=== PATIENT | male | born 1975 | race Caucasian/White ===

== ENCOUNTER 2016-07-03 04:10 | Emergency (ER) | payer BC ==
[2016-07-03] MEDS ORDERED: Ondansetron INJ* 2 MG/ML VIAL IV ONE ×2 (04:24→05:23)
[2016-07-03] MEDS ORDERED: NS 0.9% 1000 ML* 1,000 ML IV ONE ×4 (04:24→10:06)
[2016-07-03] MEDS ORDERED: Ketorolac INJ* 30 MG/ML 1 ML VIAL IV ONE (04:24)
[2016-07-03] MEDS ORDERED: Ondansetron INJ* 2 MG/ML VIAL ONE (04:27)
[2016-07-03] MEDS ORDERED: Ketorolac INJ* 30 MG/ML 1 ML VIAL ONE (04:27)
--- NOTE | 2016-07-03 04:38 | ED ---
Karen Mcclendon Rebecca, scribed for Jose Workman MD on 07/03/16 at 0423 . Abdominal Pain/Male - HPI Summary HPI Summary: Pt is a 41 y/o M who presents to ED c/o abd pain. Pain began suddenly this morning at 0130 while sleeping and has been constant since onset. Pain is in the RLQ with radiation to the right pelvic and is characterized as sharp and currently ranked 10/10. Sx aggravated and alleviated by nothing. Additionally c/ o nausea. Denies fever. PMHx kidney stones. Prior similar episodes with previous kidney stones, with the last one being a few years ago. No known medication allergies. - History of Current Complaint Chief Complaint: EDUrogenitalProblems Stated Complaint: UPPER ABD PAIN Hx Obtained From: Patient Onset/Duration: Sudden Onset, Lasting Hours - 3 hours, Still Present Timing: Constant Severity Initially: Moderate Severity Currently: Severe Pain Intensity: 10 Pain Scale Used: 0-10 Numeric Location: Discrete At: RLQ Radiates: Yes Radiates to: Inguinal - Right Character: Sharp Aggravating Factor(s): Nothing Alleviating Factor(s): Nothing Associated Signs And Symptoms: Positive: Nausea. Negative: Fever - Allergies/Home Medications Allergies/Adverse Reactions: Allergies Allergy/AdvReac Type Severity Reaction Status Date / Time No Known Allergies Allergy Verified 04/14/12 17:53 PMH/Surg Hx/FS Hx/Imm Hx Endocrine/Hematology History: Denies: Hx Diabetes Cardiovascular History: Denies: Hx Hypertension, Hx Pacemaker/ICD History: Reports: Hx Kidney Stones Sensory History: Denies: Hx Hearing Aid Psychiatric History: Denies: Hx Panic Disorder Infectious Disease History: No Infectious Disease History: Denies: Traveled Outside the [place] in Last 30 Days - Family History Known Family History: Negative: Hypertension - Social History Alcohol Use: None Substance Use Type: Reports: None Smoking Status (MU): Former Smoker Review of Systems Negative: Fever Positive: Abdominal Pain - RLQ, Nausea All Other Systems Reviewed And Are Negative: Yes Physical Exam Triage Information Reviewed: Yes Vital Signs On Initial Exam: Initial Vitals Temp Pulse Resp BP Pulse Ox 95.6 F 87 20 166/71 99 07/03/16 04:11 07/03/16 04:11 07/03/16 04:11 07/03/16 04:11 01/31/17 04:11 Vital Signs Reviewed: Yes Appearance: Positive: Well-Nourished, Pain Distress - moderate discomfort Skin: Positive: Warm Eyes: Positive: JACKELINE ENT: Positive: Hearing grossly normal Neck: Positive: Supple Respiratory/Lung Sounds: Positive: Breath Sounds Present Cardiovascular: Positive: RRR Abdomen Description: Positive: Nontender, No Organomegaly, Soft Bowel Sounds: Positive: Present Musculoskeletal: Positive: Strength/ROM Intact Neurological: Positive: Sensory/Motor Intact, Alert, Oriented to Person Place, Time Psychiatric: Positive: Affect/Mood Appropriate Diagnostics - Vital Signs Vital Signs Temp Pulse Resp BP Pulse Ox 07/03/16 04:11 95.6 F 87 20 166/71 99 - Laboratory Result Diagrams: 07/03/16 04:20 07/03/16 04:20 Lab Statement: Any lab studies that have been ordered have been reviewed, and results considered in the medical decision making process. - CT CT Abd/Pel CT Interpretation: Positive (See Comments) - Mild left hydronephrosis and perinephric inflammation secondary to a 4 mm mid left ureteral stone CT Interpretation Completed By: Radiologist Re-Evaluation - Re-Evaluation First Eval Re-Evaluation Time: 05:23 Change: Improved Comment: Pain has improved, but is starting to return. Second Eval Re-Evaluation Time: 07:33 - awaiting u/a Change: Improved Abdominal Pain Fem Course/Dx - Course Assessment/Plan: Pt is a 41 y/o M who presents to ED with a CC of RLQ pain that radiates into the R inguinal region for the last 3 hours. Additionally c/o nausea. Denies fever. CT Abd/Pel reveals mild left hydronephrosis and perinephric inflammation secondary to a 4 mm mid left ureteral stone. Pt will be d/c to home with a dx of renal colic. - Diagnoses Provider Diagnoses: Renal colic Discharge - Discharge Plan Condition: Stable Disposition: HOME Prescriptions: Tamsulosin CAP* [Flomax CAP*] 0.4 mg PO DAILY #5 cap oxyCODONE/Acetamin 5/325 MG* [Percocet 5/325 TAB*] 2 tab PO Q6H PRN #24 tab MDD 8 PRN Reason: Pain Patient Education Materials: Renal Colic (ED) Referrals: Jason Dhaliwal MD [Medical Doctor] - 1 Day (Follow up with Dr. Dhaliwal, urologist, within the next few days. ) Additional Instructions: CALL TODAY FOR FOLLOW UP WITH UROLOGY. RETURN TO THE EMERGENCY DEPARTMENT FOR ANY WORSENING OF YOUR CONDITION; PAIN, FEVER, YOU FEEL ILL OR QUESTIONS OR CONCERNS. The documentation as recorded by the Karen torrez Rebecca accurately reflects the service I personally performed and the decisions made by me, Jose Workman MD.
[2016-07-03 04:42] LABS: Hematocrit 47 % (42-52); Hemoglobin 15.8 g/dl (14.0-18.0); Mean Corpuscular HGB Conc 34 g/dl (31-36); Mean Corpuscular Hemoglobin 30 pg (27-31); Mean Corpuscular Volume 87 fL (80-94); Mean Platelet Volume 8 um3 (7.4-10.4); Red Blood Count 5.34 10^6/ul (4.0-5.4); Red Cell Distribution Width 13 % (10.5-15)
[2016-07-03 04:54] LABS: Albumin 4.4 g/dL (3.2-5.2); BUN/Creatinine Ratio 16.5 (8-20); C Reactive Protein 1.64 mg/L (< 5.00); Calcium 9.5 mg/dL (8.6-10.3); EGFR African American 79.6 (>60); EGFR Non-African American 61.9 (>60); Magnesium 1.9 mg/dL (1.9-2.7); Potassium 3.5 mmol/L (3.5-5.0); Total Bilirubin 0.3 mg/dL (0.2-1.0); Total Protein 7.4 g/dL (6.4-8.9)
[2016-07-03] MEDS ORDERED: HYDROmorphone INJ* 1 MG/ML CARPUJECT SYRINGE IV SLOW PU ONE ×2 (04:59→05:23)
[2016-07-03] MEDS ORDERED: HYDROmorphone INJ* 1 MG/ML CARPUJECT SYRINGE ONE (05:01)
--- NOTE | 2016-07-03 07:56 | RAD ---
INDICATION: Left flank pain COMPARISON: CT December 30, 2002 TECHNIQUE: Noncontrast axial source images were acquired from the level hemidiaphragms to the symphysis pubis as part of CT imaging for renal stone. Lung bases: The lung bases are clear. Liver: There is mild hepatomegaly. Noncontrast imaging shows no evidence of a hepatic mass or ductal dilatation. Gallbladder: There are no calcified gallstones. There is no evidence of wall thickening or pericholecystic fluid.. Spleen: The spleen is normal in size. The noncontrast CT appearance is normal. Pancreas: Noncontrast imaging shows no pancreatic mass or ductal dilitation. Adrenal glands: No masses are identified. Kidneys/Bladder: There is a left-sided, 5 mm, mid ureteral calculus with mild obstructive findings. There is a nonobstructive mid pole 5 mm left renal calculus. There are no other calcifications of urinary significance Adenopathy: There is no evidence of intraperitoneal or retroperitoneal adenopathy. Evaluation is limited without oral contrast. Fluid collections: There are no free or localized fluid collections. Vessels: The aorta and iliac vessels are normal in caliber. There are no significant atherosclerotic changes. The IVC appears normal Pelvic organs: The prostate and seminal vesicles appear normal GI tract: Evaluation of the bowel is limited without oral contrast. The stomach, small bowel, and lower GI tract appear grossly normal. There are no obstructive findings. Soft tissues: No soft tissue abnormalities of the extraperitoneal abdomen or pelvis are identified. Osseous structures: There are no acute osseous findings. IMPRESSION: 5 MM mid left ureteral calculus with mild obstructive findings. Additional nonobstructive 5 mm left renal calculus.
[2016-07-03] MEDS ORDERED: HYDROmorphone INJ* 1 MG/ML CARPUJECT SYRINGE IV ONE (10:06)
[2016-07-03 10:51] LABS: Urine Bacteria Absent (Absent); Urine Bilirubin Negative (Negative); Urine Glucose Negative (Negative); Urine Nitrite Negative (Negative)
[2016-07-03 11:15] VITALS: BP 134/72
[2016-07-03] MEDS ORDERED: Tamsulosin CAP* 0.4 MG PO ONE (11:44)
[2016-07-03] MEDS ORDERED: oxyCODONE/Acetamin 5/325 MG* TAB PO ONE (11:50)
--- NOTE | 2016-07-03 13:34 | ED ---
Jamison Mcclendon Anna, scribed for Jake Flores MD on 07/03/16 at 1153 . Progress - Progress Note Progress Note: dx kidney stone DISCHARGE HOME STABLE. RX PERCOCET AND FLOMAX. F/U UROLOGY Re-Evaluation - Re-Evaluation First Eval Re-Evaluation Time: 11:50 Change: Improved Comment: Pain is improved with IV fluids but returns immediatedly after fluids are gone. Pain has remained in the same location. Discussed results and plan of care with patient. Patient and family are agreeable to plan. Course/Dx - Diagnoses Provider Diagnoses: Renal colic The documentation as recorded by the Jamison torrez Anna accurately reflects the service I personally performed and the decisions made by , Jake Flores MD.
== END 2016-07-03 15:41 | disposition home or self-care (01) ==
LOC: ED 04:10
DX: N23 Unspecified renal colic (principal); R10.31 Right lower quadrant pain; R11.0 Nausea; Z87.891 Personal history of nicotine dependence
CPT/HCPCS: 36415; 74176; 80053; 81003; 81015; 83690; 83735; 85025; 86140; 96374; 96375; 99282; A9270-GY; J1170; J1885; J2405

== ENCOUNTER 2017-03-28 19:12 | Emergency (ER) | payer BC ==
[2017-03-28 19:20] VITALS: BP 136/74
--- NOTE | 2017-03-28 19:39 | UC ---
Skin Complaint HPI - HPI Summary HPI Summary: Patient presents with complaints of right sided facial swelling that he woke up with this morning. He states it has gotten worse through the course of today. He denies any dental injury, trauma or toothache. He states this afternoon he had chills. He states his right cheek is red, warm to touch and slightly painful. He states he can eat, drink, speak and swallow without any difficulty. - History of Current Complaint Chief Complaint: UCGeneralIllness Time Seen by Provider: 03/28/17 19:22 Stated Complaint: FACE SWELLING Hx Obtained From: Patient Onset/Duration: Gradual Onset, Lasting Hours Skin Exposure Onset/Duration: Hours Ago Timing: Constant Onset Severity: Mild Current Severity: Moderate Location: Discrete, Face Character: Swelling, Redness, Raised, Painful Aggravating Factor(s): Nothing Alleviating Factor(s): Nothing Associated Signs & Symptoms: Positive: Chills - Allergy/Home Medications Allergies/Adverse Reactions: Allergies Allergy/AdvReac Type Severity Reaction Status Date / Time No Known Allergies Allergy Verified 04/14/12 17:53 Review of Systems Constitutional: Chills Skin: Other - right facial swelling of cheek to manible. without submadibular lymphadenorathy. no tenderness on floor of mouth. Eyes: Negative ENT: Negative Respiratory: Negative Cardiovascular: Negative Gastrointestinal: Negative Genitourinary: Negative Motor: Negative Neurovascular: Negative Musculoskeletal: Negative Neurological: Negative Psychological: Negative All Other Systems Reviewed And Are Negative: Yes PMH/Surg Hx/FS Hx/Imm Hx Previously Healthy: Yes - Surgical History Surgical History: None - Family History Known Family History: Negative: Hypertension - Social History Occupation: Employed Full-time Lives: With Family Alcohol Use: None Substance Use Type: None Smoking Status (MU): Former Smoker Physical Exam Triage Information Reviewed: Yes Appearance: Well-Appearing Vital Signs: Initial Vital Signs Temp 99.5 F 03/28/17 19:15 Pulse 85 03/28/17 19:15 Resp 18 03/28/17 19:15 BP 136/74 03/28/17 19:15 Pulse Ox 98 03/28/17 19:15 Vital Signs Reviewed: Yes Eye Exam: Normal ENT Exam: Normal ENT: Positive: Other: - dentician in poor repair over right upper second and third molars. no tenderness on palpation over dentician. gums pink without induration, flucuanance noted on palpation of outter gum tissue performed by Dr. Orona. Dental Exam: Normal Neck exam: Normal Neck: Positive: 1 Respiratory Exam: Normal Cardiovascular Exam: Normal Abdominal Exam: Normal Musculoskeletal Exam: Normal Neurological Exam: Normal Psychological Exam: Normal Skin Exam: Normal Course/Dx - Course Course Of Treatment: Patient presents with right sided facial swelling., On examination performed by Dr. Orona he did have flucuance of the outter gum tissue consistent with underlying dental abscess and facial cellultitis. The patient was referred to the ER. He declined ambulance transfer and preferred to go in private vehicle. His was in attendance and can accompany him to the ER. ER contacted spoke to Adrienne FREIRE, informed of the transfer. Discharge in stabe condition. Patient was also seen and evaluated by Dr Schroeder who was in agreement with plan of care and disposition. - Differential Diagnoses - Skin Complaint Differential Diagnoses: Cellulitis, Other - dental abscess - Diagnoses Provider Diagnoses: cellulitis. dental abscess Discharge - Discharge Plan Condition: Stable Disposition: OTHER Discharge Disposition Comment: Go directly to the emergency department. Patient Education Materials: Dental Abscess (ED), Cellulitis (ED) Referrals: No Primary Care Phys,NOPCP [Primary Care Provider] - Additional Instructions: Go directly to the ER.
== END 2017-03-28 19:30 ==
LOC: UCEAST 19:12
DX: L03.211 Cellulitis of face (principal); K04.7 Periapical abscess without sinus; Z87.891 Personal history of nicotine dependence
CPT/HCPCS: 99211; G0463

== ENCOUNTER 2017-03-28 19:54 | Emergency (ER) | payer BC ==
[2017-03-28 21:50] LABS: Hematocrit 45 % (42-52); Hemoglobin 15.5 g/dl (14.0-18.0); Mean Corpuscular HGB Conc 34 g/dl (31-36); Mean Corpuscular Hemoglobin 31 pg (27-31); Mean Corpuscular Volume 90 fL (80-94); Mean Platelet Volume 8 um3 (7.4-10.4); Red Blood Count 5.05 10^6/ul (4.0-5.4); Red Cell Distribution Width 13 % (10.5-15); White Blood Count 9.6 10^3/ul (3.5-10.8)
[2017-03-28 22:05] LABS: Albumin 4.6 g/dL (3.2-5.2); BUN/Creatinine Ratio 19.2 (8-20); EGFR African American 105.6 (>60); EGFR Non-African American 82.1 (>60); Globulin 2.7 g/dL (2-4); Total Bilirubin 0.4 mg/dL (0.2-1.0); Total Protein 7.3 g/dL (6.4-8.9)
[2017-03-28 22:06] LABS: Potassium 3.8 mmol/L (3.5-5.0)
[2017-03-28] MEDS ORDERED: Iohexol 300* (CONTRAST) 10 ML SDV IV ONE ×2 (22:20→23:22)
[2017-03-28] MEDS ORDERED: Vancomycin 1500 MG IV - x ONCE IVPB ONE ×2 (23:30)
[2017-03-28] MEDS ORDERED: Vancomycin(*) 1,000 MG VIAL IVPB SCH (23:45)
[2017-03-28] MEDS ORDERED: Clindamycin 600 MG IVPREMIX(* 600 MG/50 ML SDV IV ONE (23:48)
--- NOTE | 2017-03-29 00:43 | ED ---
Karen Mcclendon Rebecca, scribed for Tay Cruz MD on 03/28/17 at 2328 . Skin Complaint - HPI Summary HPI Summary: Pt is a 42 y/o M referred from [facility] who presents to ED c/o R-sided facial swelling. Sx began this morning at approximately 0130 and has been gradually worsening throughout the day. Sx began closer to the eye and have spread down. Has not taken any medication for pain. Associated pain is currently mild, ranked 2/10. Sx aggravated and alleviated by nothing, unchanged by palpation. Additionally c/o chills. Denies SOB, abnormal taste in mouth, dental pain. 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 At [facility], symptoms were suspected to be facial cellulitis. - History of Current Complaint Chief Complaint: EDRashSkinAbscess Stated Complaint: DENTAL PAIN Hx Obtained From: Patient Onset/Duration: Started Days Ago - This morning at 0130, Still Present Current Severity: Moderate Pain Intensity: 4 Pain Scale Used: 0-10 Numeric Skin Location: Face - Allergy/Home Medications Allergies/Adverse Reactions: Allergies Allergy/AdvReac Type Severity Reaction Status Date / Time No Known Allergies Allergy Verified 03/28/17 21:29 PMH/Surg Hx/FS Hx/Imm Hx Endocrine/Hematology History: Denies: Hx Diabetes Cardiovascular History: Denies: Hx Hypertension, Hx Pacemaker/ICD History: Reports: Hx Kidney Stones Denies: Hx Renal Disease Sensory History: Denies: Hx Hearing Aid Psychiatric History: Denies: Hx Panic Disorder Infectious Disease History: No Infectious Disease History: Denies: Traveled Outside the [place] in Last 30 Days - Family History Known Family History: Negative: Hypertension - Social History Alcohol Use: None Substance Use Type: Reports: None Smoking Status (MU): Former Smoker Review of Systems Positive: Chills Positive: Other - NEGATIVE: Abnormal taste in mouth. Negative: Dental Pain Negative: Shortness Of Breath Positive: Other - R-sided facial swelling All Other Systems Reviewed And Are Negative: Yes Physical Exam - Summary Physical Exam Summary: Appearance: Well-appearing, Well-nourished Skin: Warm, Swelling of the right cheek from his R eye down to his R mandible, mild tenderness to palpation with warmth, erythema and edema Eyes: Normal, EOMI without pain ENT: Normal, no evidence of dental caries or dental abscess Neck: Supple, nontender, no brawny edema, no sublingual edema Respiratory: Clear to auscultation Cardiovascular: Normal Abdomen: Soft, nontender Bowel: Present Musculoskeletal: Normal, Strength/ROM Intact Neurological: Normal, A&Ox3 Psychiatric: Normal Triage Information Reviewed: Yes Vital Signs On Initial Exam: Initial Vitals Temp Pulse Resp BP Pulse Ox 98.8 F 91 14 151/77 99 03/28/17 19:55 03/28/17 19:55 03/28/17 19:55 03/28/17 19:55 03/28/17 19:55 Vital Signs Reviewed: Yes - [place] Coma Scale Coma Scale Total: 15 Diagnostics - Vital Signs Vital Signs Temp Pulse Resp BP Pulse Ox 03/28/17 21:47 98.7 F 86 14 146/84 100 03/28/17 19:55 98.8 F 91 14 151/77 99 - Laboratory Lab Results: Lab Results 03/28/17 03/28/17 03/28/17 Range/Units 21:29 21:29 21:29 WBC 9.6 (3.5-10.8) 10^3/ul RBC 5.05 (4.0-5.4) 10^6/ul Hgb 15.5 (14.0-18.0) g/dl Hct 45 (42-52) % MCV 90 (80-94) fL MCH 31 (27-31) pg MCHC 34 (31-36) g/dl RDW 13 (10.5-15) % Plt Count 163 (150-450) 10^3/ul MPV 8 (7.4-10.4) um3 Neut % (Auto) 68.4 (38-83) % Lymph % (Auto) 19.8 L (25-47) % [place] % (Auto) 10.0 H (1-9) % Eos % (Auto) 1.3 (0-6) % Baso % (Auto) 0.5 (0-2) % Absolute Neuts (auto) 6.6 (1.5-7.7) 10^3/ul Absolute Lymphs (auto) 1.9 (1.0-4.8) 10^3/ul Absolute Monos (auto) 1.0 H (0-0.8) 10^3/ul Absolute Eos (auto) 0.1 (0-0.6) 10^3/ul Absolute Basos (auto) 0 (0-0.2) 10^3/ul Absolute Nucleated RBC 0 10^3/ul Nucleated RBC % 0 Sodium 138 (133-145) mmol/L Potassium 3.8 (3.5-5.0) mmol/L Chloride 102 (101-111) mmol/L Carbon Dioxide 29 (22-32) mmol/L Anion Gap 7 (2-11) mmol/L BUN 19 (6-24) mg/dL Creatinine 0.99 (0.67-1.17) mg/dL Est GFR ( Amer) 105.6 (>60) Est GFR (Non-Af Amer) 82.1 (>60) BUN/Creatinine Ratio 19.2 (8-20) Glucose 97 (70-100) mg/dL Lactic Acid 1.2 (0.5-2.0) mmol/L Calcium 10.0 (8.6-10.3) mg/dL Total Bilirubin 0.40 (0.2-1.0) mg/dL AST 18 (13-39) U/L ALT 30 (7-52) U/L Alkaline Phosphatase 77 (34-104) U/L Total Protein 7.3 (6.4-8.9) g/dL Albumin 4.6 (3.2-5.2) g/dL Globulin 2.7 (2-4) g/dL Albumin/Globulin Ratio 1.7 (1-3) Result Diagrams: 03/28/17 21:29 03/28/17 21:29 Lab Statement: Any lab studies that have been ordered have been reviewed, and results considered in the medical decision making process. - CT CT Maxillofacial CT Interpretation: Positive (See Comments) - Right sided preceptal and facial cellulitis without abscess, post septal extension or osteomyelitis. ED physician reviewed radiology report and agrees. CT Interpretation Completed By: Radiologist Course/Dx - Course Course Of Treatment: given 1 dose of iv abx, dischargd with po script, instructed to fu with ent physician and pmd adn return for any worsening or concerning sxs . no evidence of filomena's angina, agrees to and understands dc instructois - Diagnoses Provider Diagnoses: Facial cellulitis, Preseptal cellulitis of right eye Discharge - Discharge Plan Condition: Improved Disposition: HOME Prescriptions: Clindamycin Cap(NF) [Clindamycin Cap 300 mg Cap(NF)] 300 mg PO TID #30 cap Patient Education Materials: Periorbital Cellulitis in Adults (ED) Referrals: Stoney Hooper MD [Primary Care Provider] - Oren Jose MD [Medical Doctor] - Additional Instructions: PLEASE MAKE AN APPOINTMENT FIRST THING IN THE MORNING TO BE SEEN BY YOUR PRIMARY CARE DOCTOR AND ENT SPECIALIST TO BE SEEN WITHIN 1 WEEK PLEASE RETURN TO THE EMERGENCY ROOM IF YOU HAVE ANY WORSENING OR CONCERNING SYMPTOMS The documentation as recorded by the Karen torrez Rebecca accurately reflects the service I personally performed and the decisions made by me, Tay Cruz MD.
[2017-03-29] MEDS ORDERED: diPHENhydraMINE IV* 50 MG/ML 1 ml VIAL (BENADRYL) IV ONE (01:32)
[2017-03-29 02:29] VITALS: BP 136/80
--- NOTE | 2017-03-29 09:15 | RAD ---
Indication: Soft tissue swelling under the right eye. CT of the facial bones was obtained in the axial plane. Sagittal and coronal reconstructed images were obtained. Frontal sinuses and ethmoid air cells are unremarkable. The maxillary sinuses demonstrate mucosal thickening. There is soft tissue swelling superficial to the right maxilla. There is a large periapical abscess involving the right second bicuspid. This may be the cause for the cellulitis. Edema is noted in the right cheek extending to the right periorbital soft tissues. No evidence of abscess is definitively identified. No orbital edema is noted. The mandible demonstrates no fracture. Temporomandibular joints are grossly unremarkable. The skull base is otherwise unremarkable. IMPRESSION: Periorbital and right facial cellulitis. No drainable fluid collections are noted. Mucosal thickening of the right maxillary sinus is noted. There is likely a large dental caries with periapical abscess with erosion of the right maxilla involving the right second bicuspid. This may be the origin for the cellulitis.
== END 2017-03-29 02:30 | disposition home or self-care (01) ==
LOC: ED 19:54
DX: L03.211 Cellulitis of face (principal); H00.033 Abscess of eyelid right eye, unspecified eyelid; K08.89 Other specified disorders of teeth and supporting structures; Z87.891 Personal history of nicotine dependence
CPT/HCPCS: 36415; 70487; 80053; 83605; 85025; 96374; 96375; 99282; J1200; J3370; Q9967

== ENCOUNTER 2017-05-04 17:07 | Observation (INO) | payer BC ==
[2017-05-04] MEDS ORDERED: Morphine INJ* 2 MG/ML 1 ML CARPUJECT IV ONE (18:29)
[2017-05-04] MEDS ORDERED: NS 0.9% 1000 ML* 1,000 ML IV ONE ×2 (18:29→22:47)
[2017-05-04] MEDS ORDERED: Ondansetron INJ* 2 MG/ML VIAL IV ONE (18:29)
--- NOTE | 2017-05-04 18:40 | ED ---
Back Pain - HPI Summary HPI Summary: 42 male presents to ED with complaints of left sided flank pain that began around 12 today. Patient states he was seen yesterday at [facility] for LLQ/suprapubic pain that began yesterday and was diagnosed with a 5mm kidney stone. States today the pain moved up into his left flank. Did have difficulty urinating yesterday however improved today after taking flomax. Has been taking flomax, toradol and antibiotics that he was given yesterday. Has not had any relief from pain medication. Denies difficulty urinating today and noticeable blood in urine. Denies nausea, vomiting, diarrhea, constipation. Has had normal bowel movement. Denies fever/chills. Denies genitalia symptoms. No other complaints. No PMHx. Last took toradol around 1:30pm today. Denies trauma/ injury. States he gets kidney stones frequently but is always able to pass them. However this one is different. Also states he had a stent for previous kidney stone approximately 15 years ago. - History of Current Complaint Chief Complaint: EDFlankPain Stated Complaint: LT FLANK PAIN Time Seen by Provider: 05/04/17 17:54 Hx Obtained From: Patient Onset/Duration: Sudden Onset, Lasting Days, Still Present, Worse Since Onset/Duration: Started Hours Ago Timing: Constant - with it worsening at times Back Pain Location: Is Discrete @ - left flank Severity Initially: Moderate Severity Currently: Severe Pain Intensity: 10 Pain Scale Used: 0-10 Numeric Character: Sharp Aggravating Symptom(s): Nothing Alleviating Symptom(s): Nothing Associated Signs And Symptoms: Positive: Flank Pain - left. Negative: Weakness , Numbness, Bladder Incontinence, Bowel Incontinence, Pain with Weight Bearing - Allergies/Home Medications Allergies/Adverse Reactions: Allergies Allergy/AdvReac Type Severity Reaction Status Date / Time Vancomycin Allergy Severe Facial Verified 05/04/17 17:15 Redness/Flushing PMH/Surg Hx/FS Hx/Imm Hx Endocrine/Hematology History: Denies: Hx Diabetes Cardiovascular History: Denies: Hx Hypertension, Hx Pacemaker/ICD History: Reports: Hx Kidney Stones Denies: Hx Renal Disease Sensory History: Denies: Hx Hearing Aid Psychiatric History: Denies: Hx Panic Disorder - Surgical History Surgery Procedure, Year, and Place: n/a - Immunization History Immunizations Up to Date: Yes Infectious Disease History: No Infectious Disease History: Denies: Traveled Outside the [place] in Last 30 Days - Family History Known Family History: Negative: Hypertension - Social History Alcohol Use: None Substance Use Type: Reports: None Smoking Status (MU): Former Smoker Review of Systems Constitutional: Negative Cardiovascular: Negative Respiratory: Negative Positive: Abdominal Pain - resolved, Nausea - resolved Positive: dysuria - resolved, flank pain - left Neurological: Negative All Other Systems Reviewed And Are Negative: Yes Physical Exam Triage Information Reviewed: Yes Vital Signs On Initial Exam: Initial Vitals Temp Pulse Resp BP Pulse Ox 97.4 F 92 17 155/79 98 05/04/17 17:09 12 17:09 12 17:09 05/04/17 17:09 05/04/17 17:09 BP improved 134/82 once pain controlled Vital Signs Reviewed: Yes Appearance: Positive: Well-Appearing, Well-Nourished, Pain Distress - moderate, holding left flank Skin: Positive: Warm, Skin Color Reflects Adequate Perfusion, Dry. Negative: Cold, Cyanosis @, Pale, Erythema @ Head/Face: Positive: Normal Head/Face Inspection Eyes: Positive: Conjunctiva Clear ENT: Positive: Hearing grossly normal, Pharynx normal Neck: Positive: Supple, Nontender, No Lymphadenopathy Respiratory/Lung Sounds: Positive: Clear to Auscultation, Breath Sounds Present. Negative: Rales, Rhonchi, Wheezes Cardiovascular: Positive: Normal, RRR, Pulses are Symmetrical in both Upper and Lower Extremities. Negative: Murmur, Rub Abdomen Description: Positive: Nontender, No Organomegaly, Soft, CVA Tenderness (L). Negative: Bruit, CVA Tenderness (R), Distended, Guarding, McBurney's Point Tenderness, Peritoneal Signs Bowel Sounds: Positive: Present Male Genital Exam: Positive: normal genitalia - per patient, deferred exam Musculoskeletal: Positive: Normal, Strength/ROM Intact Neurological: Positive: Normal, Sensory/Motor Intact, Alert, Oriented to Person Place, Time, Normal Gait - Danielito Coma Scale Coma Scale Total: 15 Diagnostics - Vital Signs Vital Signs Temp Pulse Resp BP Pulse Ox 05/04/17 17:09 97.4 F 92 17 155/79 98 - Laboratory Result Diagrams: 05/04/17 18:41 05/04/17 18:41 Lab Statement: Any lab studies that have been ordered have been reviewed, and results considered in the medical decision making process. - Radiology KUB Xray Interpretation: Positive (See Comments) - POSSIBLE 7 MM CALCIFICATION OVERLYING THE EXPECTED LOCATION OF THE LEFT URETER. THIS MAY CORRESPOND TO A 4 MM CALCIFICATION SEEN ON THE JULY 03, 2016 CT OF THE ABDOMEN AND PELVIS. Radiology Interpretation Completed By: Radiologist - Ultrasound No standard instances Ultrasound Interpretation: Positive (See Comments) - 1. Nonobstructing ureteral stone at the mid-level left renal collecting system. 2. No definite hydronephrosis bilaterally. 3. No ureteral jet was seen after 15 minutes of imaging, a finding associated with ureteral obstruction. Ultrasound Interpretation Completed By: Radiologist Re-Evaluation - Re-Evaluation First Eval Re-Evaluation Time: 21:30 Change: Improved - had relief after pain medication, updated on all labs and imaging studies. discussed treatment options. Back Pain Course/Dx - Course Course Of Treatment: given pain medication and fluids. had relief. renal US and KUB obtained and showed 7mm left ureter calcification/kidney stone. obtained records from [facility] from last night's visit which showed CT results of kidney stone 5mm in left proximal ureter with mild to moderate hydronephrosis and hydroureter. patient was already taking toradol, flomax and cipro at home. will continue cipro and flomax. No concern for other etiology causing patient's pain. Failed outpatient therapy. Normal vitals and improving WBC and labs compared to yesterday 05/03/17. Kidney function slighty decreased in comparison from 1 month ago. Spoke with Dr Neal at 9:48pm who stated either pain medication at home or admit for pain management and he will round on patient tomorrow if stone had not passed for surgical intervention. Spoke with Hospitalist Dr Palomino who will consult patient and agrees to admit for pain management and follow up with Dr Neal tomorrow in hospital. - Diagnoses Differential Diagnosis/HQI/PQRI: Positive: Renal Colic, Other - renal calculi, hydronephrosis, UTI Provider Diagnoses: Renal calculus, left - Provider Notifications Discussed Care Of Patient With: Dr Georgette Trinh Time Discussed With Above Provider: 21:45 Instructed by Provider To: Admit As Observation Discharge - Discharge Plan Condition: Stable Disposition: ADMITTED TO [facility]
[2017-05-04] MEDS ORDERED: Morphine INJ* 4 MG/ML 1 ML CARPUJECT IV ONE (18:45)
[2017-05-04] MEDS ORDERED: Morphine INJ* 4 MG/ML 1 ML CARPUJECT ONE (18:46)
[2017-05-04 18:49] LABS: Hematocrit 40 % (42-52); Hemoglobin 13.7 g/dl (14.0-18.0); Mean Corpuscular HGB Conc 34 g/dl (31-36); Mean Corpuscular Hemoglobin 31 pg (27-31); Mean Corpuscular Volume 89 fL (80-94); Mean Platelet Volume 8 um3 (7.4-10.4); Red Blood Count 4.49 10^6/ul (4.0-5.4); Red Cell Distribution Width 13 % (10.5-15); White Blood Count 10.9 10^3/ul (3.5-10.8)
[2017-05-04 18:50] LABS: Add Diff/Slide Review? Slide Review Added; Comments Flag Yes
[2017-05-04 18:50] LABS: Urine Bilirubin Negative (Negative); Urine Glucose Negative (Negative); Urine Nitrite Negative (Negative)
[2017-05-04 19:03] LABS: Albumin 3.8 g/dL (3.2-5.2); BUN/Creatinine Ratio 10.3 (8-20); C Reactive Protein 14.76 mg/L (< 5.00); Calcium 8.9 mg/dL (8.6-10.3); EGFR African American 55.1 (>60); EGFR Non-African American 42.8 (>60); Globulin 2.5 g/dL (2-4); Potassium 4.2 mmol/L (3.5-5.0); Total Bilirubin 0.4 mg/dL (0.2-1.0); Total Protein 6.3 g/dL (6.4-8.9)
--- NOTE | 2017-05-04 19:35 | RAD ---
INDICATION: Left flank pain COMPARISON: CT abdomen pelvis July 03, 2016 TECHNIQUE: 2 views the abdomen were obtained. FINDINGS: The bowel gas pattern is normal. There is a moderate amount of stool overlying the renal shadows. At the left lateral margin of the L3 vertebral body there is a 7 mm calcification that appears to be separate from the transverse process potentially at the expected location of the left ureter. This is approximately the same location as a 4 mm calcification was seen on the July 03, 2016 CT examination. IMPRESSION: POSSIBLE 7 MM CALCIFICATION OVERLYING THE EXPECTED LOCATION OF THE LEFT URETER. THIS MAY CORRESPOND TO A 4 MM CALCIFICATION SEEN ON THE JULY 03, 2016 CT OF THE ABDOMEN AND PELVIS.
[2017-05-04] MEDS ORDERED: HYDROmorphone INJ* 2 MG/ML CARPUJECT SYRINGE IV SLOW PU ONE (20:14)
--- NOTE | 2017-05-04 22:13 | RAD ---
INDICATION: Left flank pain. COMPARISON: KUB dated May 04, 2017 that demonstrated questionable left ureteral stone. TECHNIQUE: Real-time ultrasound examination of the bilateral kidneys and urinary bladder including grayscale and Doppler color flow analysis. FINDINGS: The kidneys are normal and symmetric in size measuring 12 x 5.5 x 5.6 cm on the right and 13.2 x 5.1 x 6.0 cm and the left. There is no definite hydronephrosis bilaterally. At the mid-level left kidney there is an echogenic shadowing focus measuring 5 mm. A normal right ureteral jet is seen. A left ureteral jet is not seen. IMPRESSION: 1. Nonobstructing ureteral stone at the mid-level left renal collecting system. 2. No definite hydronephrosis bilaterally. 3. No ureteral jet was seen after 15 minutes of imaging, a finding associated with ureteral obstruction.
[2017-05-04] MEDS ORDERED: Al Hydrox/Mg Hydrox/Simet LIQ* 30 ML UDC PO PRN (22:44)
[2017-05-04] MEDS ORDERED: Docusate CAP* 100 MG PO PRN (22:44)
[2017-05-04] MEDS ORDERED: Ondansetron INJ* 2 MG/ML VIAL IV PRN (22:44)
[2017-05-04] MEDS ORDERED: Senna TAB PO PRN (22:44)
[2017-05-04] MEDS: NS 0.9% 1000 ML* 1,000 ML IV SCH (23:50)
[2017-05-05] MEDS: Ciprofloxacin TAB* 250 MG PO SCH ×2 (00:10→09:54)
[2017-05-05] MEDS: Morphine INJ* 2 MG/ML 1 ML SYRINGE (TWO MG - NEW SYRINGE VERSION) IV PRN ×2 (00:10→03:58)
--- NOTE | 2017-05-05 02:17 | HP ---
CC: Stoney Hooper MD HISTORY AND PHYSICAL: DATE OF ADMISSION: 05/04/17 TIME OF EVALUATION: 2229. PRIMARY CARE PHYSICIAN: Stoney Hooper MD CHIEF COMPLAINT: Left-sided flank and groin pain. HISTORY OF PRESENT ILLNESS: This is a 42-year-old male with a past medical history of kidney stones who presents to the emergency room after going to the emergency room in [place] yesterday with persistent left-sided pain. The patient states around 6:30 in the morning, yesterday morning he began having nausea, vomiting, and left-sided groin pain. He went to the emergency room at [place] with diagnosis of a kidney stone, at that time had a CAT scan done which showed a 5-mm proximal third ureteral stone with mild to moderate hydro. He was given IV fluids, Toradol, Flomax, Cipro, and was sent home. The patient states he continued to have worsening pain. He was initially better. He has no diarrhea, no constipation, he has noted some black stools. He has no dysuria , but he has urinary frequency. He has extreme pain before and after he pees. He did start taking the Flomax and the Cipro. He has had chills, no fever, no chest pain, no shortness of breath, no changes in weight, and no dietary changes. Has a history of kidney stones in the past, but not as severe as it is today. Otherwise remaining review of systems is negative. In the emergency room, the patient had labs and imaging, was given 4 mg of morphine and 1 mg of Dilaudid, Zofran 4 mg, and a Liter of fluid and was referred to the hospitalist service for further evaluation. PAST MEDICAL HISTORY: Nephrolithiasis. MEDICATIONS: No routine medications, was just started on: 1. Flomax 0.4 mg in the morning. 2. Cipro 250 mg p.o. b.i.d. 3. Toradol 10 mg every 6 hours as needed. ALLERGIES: VANCOMYCIN. FAMILY HISTORY: His (paternal grandmother) had kidney stones in the past, no renal failure that he is aware of. SOCIAL HISTORY: Lives at home with his who is his health care proxy. Works in road construction. No smoking, alcohol, or illicit drug use. He has 2 children ages 16 and 7 years of age. Code status full code. REVIEW OF SYSTEMS: 14-point review of systems as mentioned in the HPI, otherwise negative. PHYSICAL EXAMINATION GENERAL: In no acute distress. Resting comfortably with his at the bedside. VITAL SIGNS: Temp 97.4, pulse rate 90, respiratory rate 16, oxygen saturation 93% on room air, and blood pressure 128/78. HEENT: Head normocephalic. Pupils are equal, reactive, and anicteric. Oropharynx: Mucous membranes are moist. No erythema or exudate. NECK: Supple. No lymphadenopathy. RESPIRATORY: Clear to auscultation. No wheezes, rhonchi, or rales. CARDIAC: Regular, rate, and rhythm. No murmurs, rubs, or gallops. ABDOMEN: Soft, nontender, and nondistended. He has left-sided groin and flank pain. EXTREMITIES: No clubbing, cyanosis, or edema. +2 DPs NEUROLOGIC: Alert and oriented x3. No focal neurologic deficits. LABORATORY DATA: White count 10.9, hemoglobin 13.7, hematocrit 40, platelets 157. Sodium 138, potassium 4.2, chloride 105, bicarb 29, BUN 18, creatinine 1.74 , glucose 105, CRP is 14.76. Urine is unremarkable. Specific gravity is 1.002. Radiographic Data: Abdominal x-ray shows possible 7 mm calcification overlying the expected location of the left ureter and renal ultrasound shows nonobstructing ureteral stone at the mid level of the left renal collecting system. No definite hydronephrosis bilaterally. ASSESSMENT: This is a 42-year-old male with a past medical history of nephrolithiasis who presents with a nonobstructing stone. This is a second ER visit in 24 hours. 1. Nephrolithiasis. Assessment: The patient has a nonobstructing stone with no hydronephrosis but with acute kidney injury. Urology was contacted in the emergency room. Plan is to admit for observation, IV fluids, pain control. We will hold the Toradol in the setting of his worsening renal failure. We follow up on his urine culture obtained from [place]. We will continue him on the Cipro as his white count has improved from 15.6 yesterday to 10.9 today and his urinalysis is unremarkable on this visit. We will continue him on Flomax as well and follow up with Urology in the morning and repeat his blood work in the morning. 2. Fluids, electrolytes, and nutrition: Place him on a regular diet with IV fluids. 3. DVT prophylaxis: The patient scores moderate risk. Place him on heparin subcu t.i.d. 4. Code status. Full code. PATIENT TIME: Greater than 45 minutes spent doing the history and physical, more than half the time spent in direct patient contact. [id number]/CPS #: [id number] FAITH
[2017-05-05 05:49] LABS: BUN/Creatinine Ratio 8.6 (8-20); EGFR African American 59.8 (>60); EGFR Non-African American 46.5 (>60); Potassium 4.5 mmol/L (3.5-5.0)
[2017-05-05] MEDS ORDERED: Heparin VIAL(*) 5000 UNITS/ML VIAL (FIVE THOUSAND) SUBCUT SCH (06:00)
[2017-05-05] MEDS: NS 0.9% 1000 ML* 1,000 ML IV SCH (06:32)
[2017-05-05] MEDS ORDERED: Morphine INJ* 2 MG/ML 1 ML SYRINGE (TWO MG - NEW SYRINGE VERSION) IV ONE (07:36)
[2017-05-05] MEDS ORDERED: Morphine INJ* 2 MG/ML 1 ML SYRINGE (TWO MG - NEW SYRINGE VERSION) IV PRN (07:37)
[2017-05-05] MEDS ORDERED: Influenza VAC *QUAD* 2017-18* 0.5 ML SYRINGE IM ONE (09:00)
[2017-05-05] MEDS ORDERED: Tamsulosin CAP* 0.4 MG PO SCH (09:00)
--- NOTE | 2017-05-05 09:39 | RAD ---
INDICATION: Left-sided kidney stone. COMPARISON: Similar radiograph dated May 04, 2012. TECHNIQUE: 2 views the abdomen were obtained. FINDINGS: At the level of the L2/L3 intervertebral disc space there is a 7 mm focal density that is morphologically similar to the one identified on the previous day KUB. IMPRESSION: 7 MM CALCIFICATION OVERLYING THE EXPECTED LOCATION OF THE PROXIMAL LEFT URETER.
[2017-05-05] MEDS ORDERED: Iohexol 180 (CONTRAST) 10 ML SDV IV ONE (12:53)
[2017-05-05] MEDS ORDERED: Midazolam* 1 MG/ML 5 ML VIAL (5 MG) ONE (12:53)
[2017-05-05] MEDS ORDERED: fentaNYL* 50 MCG/ML 2 ML VIAL (100 MCG VIAL) ONE (12:53)
[2017-05-05] MEDS ORDERED: Gentamicin ADULT (*) 160 MG in NS 0.9% 100 ML* 100 ML IVPB ONE (13:00)
[2017-05-05] MEDS ORDERED: Lidocaine 2% JELLY* 6 ML JELLY TOPICAL ONE (13:13)
[2017-05-05] MEDS ORDERED: Propofol* 10 MG/ML 20 ML BTL IV PUSH ONE (13:18)
[2017-05-05] MEDS ORDERED: Tamsulosin CAP* 0.4 MG PO ONE (14:00)
[2017-05-05 14:15] VITALS: BP 128/90
--- NOTE | 2017-05-05 14:56 | CONS ---
CC: Stoney Hooper MD * UROLOGY CONSULTATION: DATE OF CONSULT: 05/05/17 REQUESTING PHYSICIAN: Lara Palomino MD DIAGNOSES: 1. Left hydronephrosis. 2. Calculus, left proximal ureter. HISTORY: Kalpesh Millard is a 42-year-old gentleman with a past history significant for renal calculi. He had initially presented to the emergency room in [place] and a CT scan had revealed a 5 to 6 mm calculus in the left proximal ureter with left hydronephrosis and evidence of perinephric extravasation. He was managed conservatively and because of worsening pain, presented to the emergency room at [facility] on 05/04/17 and a KUB revealed a persistent 7 mm calculus in the left proximal ureter. He was admitted for pain management and x-ray was repeated earlier today, which revealed no change in the position of the calculus in the left proximal ureter. Because of the persistence of pain requiring intravenous pain medication and the lack of any progress in the calculus migrating distally, he is now being brought in for urgent left stent insertion to be followed at some point in the near future by lithotripsy. PAST MEDICAL HISTORY: Significant for recurrent renal calculi. MEDICATIONS: On admission (all of these were started after the visit to the emergency room in [place]): 1. Cipro 250 mg b.i.d. 2. Toradol p.r.n. 3. Flomax 0.4 mg once a day. ALLERGIES: VANCOMYCIN (red man syndrome). FAMILY HISTORY: His grandmother had a history of kidney stones. REVIEW OF SYSTEMS: He is otherwise in excellent health. He denies any chest pain or shortness of breath. There is no history of diabetes mellitus or any other major systemic illness. PHYSICAL EXAMINATION: Reveals a pleasant, healthy-appearing, uncomfortable gentleman. Blood pressure is 133/88, pulse 93 per minute, respirations 18 per minute, temperature 37.3, oxygen saturation 96% on room air. Cardiovascular exam revealed regular rate and rhythm, S1,S2. Lungs are clear bilaterally. Abdomen is soft with mild left flank tenderness. LABORATORY DATA: Review of labs revealed a white count of 10.9, hemoglobin and hematocrit are 13.7 and 40 respectively. BUN and creatinine are 14 and 1.62 respectively. Urinalysis is essentially unremarkable with no evidence of bacteria. IMPRESSION: I had a detailed discussion with Mr. Millard regarding the management options. He was given the option of continuing conservative management and I also explained to him that because of the proximal location of the calculus that this would probably be a 2 stage process with the first stage being the left stent insertion to be followed at some point in the near future by lithotripsy. He understands and wishes to proceed as planned with left stent insertion. PLAN: Left ureteral stent insertion. [id number]/CPS #: [id number] FAITH
--- NOTE | 2017-05-05 15:19 | RAD ---
CPT II Codes: 6045F INDICATION: Left-sided nephrolithiasis TECHNIQUE: Intraoperative fluoroscopy was provided during retrograde pyelogram and ureteral stent placement. FINDINGS: 4 spot films depict retrograde pyelogram followed by anatomic placement of a left ureteral stent. Fluoroscopy time: 13 seconds IMPRESSION: As above.
--- NOTE | 2017-05-05 15:20 | RAD ---
INDICATION: The patient is status post left ureteral stent placement COMPARISON: Preoperative KUB dated May 05, 2017 acquired at 0920 hours TECHNIQUE: Single AP view of the abdomen was obtained at 1444 hours. FINDINGS: There has been placement of an anatomically aligned left ureteral stent. Calcification overlying the expected location of the left lower pole measures 6 mm. The 7 mm calcification seen on the previous KUB is not definitely identified. IMPRESSION: ANATOMIC PLACEMENT OF A LEFT URETERAL STENT.
--- NOTE | 2017-05-05 20:27 | OP ---
CC: Dr. Stoney Hooper * DATE OF OPERATION: 05/05/17 - ROOM #[id number] DATE OF : 71 SURGEON: Sharif Neal MD ANESTHESIOLOGIST: Dr. Shine. ANESTHESIA: Local plus IV sedation. PRE-OP DIAGNOSES: 1. Left hydronephrosis. 2. Calculus, left proximal ureter. POST-OP DIAGNOSIS: 1. Left hydronephrosis. 2. Calculus, left proximal ureter. OPERATIVE PROCEDURE: Cystoscopy, left retrograde pyelogram, left ureteral calculus manipulation, and left stent insertion. COMPLICATIONS: None. POSTOPERATIVE CONDITION: Stable. STENT USED: A 6-Maori stent left ureter. INDICATIONS: Kalpesh Millard is a 42-year-old gentleman who has had persistent left flank pain secondary to obstructing calculus in the left proximal ureter. He is being brought in for urgent left stent insertion to be followed at some point in the future by lithotripsy. OPERATIVE FINDINGS: 1. Mild stricture proximal bulbar urethra. 2. Mild median lobe enlargement of prostate. 3. Obstructing calculus, left proximal ureter. DESCRIPTION OF PROCEDURE: After induction of intravenous sedation and 2% Xylocaine gel local anesthesia, cystoscopy was performed. A mild stricture was noted in the proximal bulbar urethra and mild to moderate median lobe enlargement of the prostate was noted. The bladder was unremarkable. A guidewire was introduced into the left ureter. The calculus was visualized on fluoroscopy in the proximal left ureter and was carefully manipulated proximally. Retro-grade pyelogram revealed fullness of the left collecting system. A 6-Maori stent was introduced and positioned under fluoroscopy with good proximal and distal positioning obtained. The bladder was emptied. The patient tolerated the procedure satisfactorily and was transferred back to recovery area in stable condition. [id number]/CPS #: [id number] MTDD
--- NOTE | 2017-05-06 01:00 | DS ---
CC: Dr. Hooper; Dr. Neal * DISCHARGE SUMMARY: DATE OF ADMISSION: 05/04/17 DATE OF DISCHARGE: 05/05/17 PRIMARY CARE PROVIDER: Dr. Stoney Hooper MY ATTENDING WHILE IN THE HOSPITAL: Dr. Luis Alberto Knight * (DICTATED BY MOUNA RUTHERFORD) CONSULTING PROVIDER: Dr. Sharif Neal. PRIMARY DISCHARGE DIAGNOSES: Nephrolithiasis, acute kidney injury. SECONDARY DISCHARGE DIAGNOSES: None. STUDIES DONE WHILE IN THE HOSPITAL: Abdominal x-ray from 05/04/17 read as possible 7 mm calcification of widely expected location of the left ureter, may be corresponding to a 4 mm calcification seen on 07/03/16 CT of the abdomen and pelvis. Renal ultrasound from 05/04/17 read as nonobstructing ureteral stone in the mid left renal collecting system. No definite hydronephrosis bilaterally. No ureteral jet was seen after 15 minutes of imaging. Findings associated with ureter obstruction. Abdominal x-ray from 05/05/17 read as 7 mm calcification along the expected location of proximal left ureter. Retrograde pyelogram following the anatomic placement of the left ureteral stent. Abdominal x-ray from 05/05/17 read as anatomic placement of left ureteral stent. MEDICATIONS AT DISCHARGE: 1. Flomax 0.4 mg p.o. daily. 2. Toradol 10 mg p.o. q.6 hours as needed. 3. Tylenol 500 mg p.o. q.4 hours as needed. New medication at discharge: 1. Tylenol. Medication discontinued at discharge: 1. Ciprofloxacin. HOSPITAL COURSE: This is a brief summary of the patient's presentation. For more details, please see the history and physical from Dr. Lara Palomino on 07/20. In brief, the patient is a 42-year-old male with past medical history for the above, who presented to emergency department after being seen in emergency room in [place] yesterday with persistent left-sided pain. The patient has a history of recurrent nephrolithiasis. This pain felt like that. The patient had a CAT scan which showed a 5 mm proximal ureteral stone with mild to moderate hydronephrosis for which he was given IV fluids, Toradol, Flomax, Cipro, and sent home. The patient's pain worsened. The patient said it was the worst pain he ever had associated with kidney stone. The patient was admitted to the hospital for Gerard Zofran, and fluids as well as a urology consultation. The patient had persistent pain overnight which was moderately controlled with IV morphine. The patient was continued on the Cipro , but had a benign urinalysis while at this emergency room. The patient was taken to the operating room by Dr. Sharif Neal. In the afternoon of 05/05/17, a stent was placed as above. Procedure was performed without complication and 6 -Urdu stent was introduced into the left ureter. The patient tolerated the procedure adequately and was discharged for followup within 1 to 2 weeks for lithotripsy with Dr. Neal. PHYSICAL EXAM ON DAY OF DISCHARGE: General: The patient is a 42-year-old male who appears stated age. He is sitting in the bed, in moderate distress, abdominal pain. Vital Signs: At discharge, temperature 97.9, pulse rate 81, respiratory rate 18, oxygen saturation 95% on room air, blood pressure 133/70. HEENT: Head normocephalic, atraumatic. Sclerae anicteric. No conjunctival injection. Nasal mucosa moist and without discharge. Oral mucosa moist. No pharyngeal erythema. Neck: Supple. Nontender. No lymphadenopathy. No carotid bruit auscultated. Cardiac: Regular rate and rhythm. No clicks, murmurs, gallops, or rubs. Pulses 2+ bilaterally in dorsalis pedis, posterior tibialis, and radial areas. No edema in the bilateral lower extremities. Respiratory: Clear to auscultation bilaterally. No wheezes, rales, or rhonchi. Abdomen: Nondistended, tender to palpation in the left lower quadrant. Bowel sounds present, normoactive in all 4 quadrants. No hepatosplenomegaly. Unable to palpate the kidneys bilaterally. Genitourinary: No suprapubic tenderness or CVA tenderness. Skin: Clean, dry, intact. Neuro: Cranial nerves II through XII grossly intact. No focal deficits. Alert and oriented x3. Psychiatric: Pleasant and cooperative. The patient was reexamined in the PACU and had a similar exam except that his abdominal pain was gone. DISCHARGE PLAN: The patient will be discharged to home with the medications as above. The patient was deemed not to need Cipro based on benign urinalysis per urologist. The patient will follow up with his primary care doctor within one week for general medical management. The patient will have a sieve at home and will attempt to capture the kidney stone if it passes for analysis. The patient will follow up with Dr. Neal within the next 2 weeks for lithotripsy and urological management. The patient should engage in activity as tolerated. Have a regular unrestricted diet. TIME SPENT: Approximately 40 minutes was spent on this discharge, 20 of which spent [id number] with the patient obtaining history and physical and discussing the treatment plan. MOUNA RUTHERFORD [id number]/[facility] #: [id number] FAITH
== END 2017-05-05 14:39 | disposition home or self-care (01) ==
LOC: ED 17:07 → SSU 22:44
PROVIDERS: ADMIT Pediatrics; ATTEND Internal Medicine
PROC: 0T778DZ Dilation of Left Ureter with Intraluminal Device, Via Natural or Artificial Opening Endoscopic (ICD-10-PCS; principal; 2017-05-04)
PROC: BT1FZZZ Fluoroscopy of Left Kidney, Ureter and Bladder (ICD-10-PCS; 2017-05-04)
PROC: 0WHR8YZ Insertion of Other Device into Genitourinary Tract, Via Natural or Artificial Opening Endoscopic (ICD-10-PCS; 2017-05-04)
DX: N13.2 Hydronephrosis with renal and ureteral calculous obstruction (principal); N17.9 Acute kidney failure, unspecified; Z87.442 Personal history of urinary calculi; Z88.1 Allergy status to other antibiotic agents; N40.0 Benign prostatic hyperplasia without lower urinary tract symptoms; N13.1 Hydronephrosis with ureteral stricture, not elsewhere classified; Z23 Encounter for immunization
CPT/HCPCS: 36415; 74000; 74420; 76775; 80048; 80053; 81003; 83605; 85025; 86140; 90471; 90686; 96372; 96374; 96375; 96376; 99284; A9270-GY; G0008; G0378; J1170; J1580; J1644; J2250; J2270; J2405; J2704; J3010

== ENCOUNTER 2017-05-20 09:55 | Day surgery (SDC) | payer BC ==
[~2017-05-20 09:55] MED LIST: Buffered Lidocaine 0.9% SYRIN* 5 ML/SYR SYRINGE INTRADERM ONE; DiMENhydriNATE IV* 50 MG/ML VIAL IV PUSH PRN; Famotidine IV* 10 MG/ML 2 ML (20 mg) IV ONE; Morphine INJ* 2 MG/ML 1 ML CARPUJECT IV PRN; PROCHLORPERAZINE INJ 5 MG/ML 2 ML VIAL IV PRN; Scopolamine 1.5 mg* PATCH TRANSDERM PRN; fentaNYL* 50 MCG/ML 2 ML VIAL (100 MCG VIAL) IV PRN; oxyCODONE/Acetamin 5/325 MG* TAB PO PRN
[2017-05-20] MEDS ORDERED: Famotidine IV* 10 MG/ML 2 ML (20 mg) ONE (10:20)
[2017-05-20] MEDS ORDERED: cefTRIAXone(*) 2 GM ADDV.VIAL IVPB ONE (10:20)
[2017-05-20] MEDS ORDERED: Buffered Lidocaine 0.9% SYRIN* 5 ML/SYR SYRINGE ONE (10:20)
--- NOTE | 2017-05-20 10:40 | RAD ---
INDICATION: Left-sided lithotripsy. COMPARISON: Similar radiograph dated May 05, 2017 TECHNIQUE: 2 views the abdomen were obtained. FINDINGS: The left ureteral stent is anatomically aligned. At the proximal left ureter there is a 7 mm calcification that appears to correspond to a similar calcification seen more proximally on the previous KUB. There are no large or suspicious calcifications on the right. IMPRESSION: 1. ANATOMIC ALIGNMENT OF LEFT URETERAL STENT. 2. THERE IS A 7 MM CALCIFICATION ADJACENT TO THE STENT AT THE PROXIMAL LEFT URETER THAT APPEARS TO CORRESPOND TO CALCIFICATION SEEN AT THE LOWER POLE THE LEFT KIDNEY ON THE PREVIOUS KUB.
[2017-05-20] MEDS ORDERED: KETAMINE HCL* 50 MG/ML 10 ML VIAL ONE (11:10)
[2017-05-20] MEDS ORDERED: Midazolam* 1 MG/ML 10 ML VIAL (10 MG) ONE (11:10)
[2017-05-20] MEDS ORDERED: fentaNYL* 50 MCG/ML 2 ML VIAL (100 MCG VIAL) ONE (11:10)
[2017-05-20] MEDS ORDERED: Dexamethasone IV* 4 MG/ML 1 ML (4 MG) ONE (13:01)
[2017-05-20] MEDS ORDERED: Flumazenil* 0.1 MG/ML 5 ML MDV ONE (13:01)
[2017-05-20] MEDS ORDERED: Propofol* 10 MG/ML 20 ML BTL IV PUSH ONE (13:01)
[2017-05-20] MEDS ORDERED: Ondansetron INJ* 2 MG/ML VIAL ONE (13:01)
[2017-05-20 14:16] VITALS: BP 120/87
--- NOTE | 2017-05-21 05:47 | OP ---
CC: Dr. Stoney Hooper * DATE OF OPERATION: 05/20/17 - [facility] DATE OF : 71 SURGEON: Sharif Neal MD. ANESTHESIOLOGIST: Dr. Robert. ANESTHESIA: Intravenous sedation. PRE-OP DIAGNOSES: 1. Calculus, left proximal ureter. 2. History of left hydronephrosis. POST-OP DIAGNOSES: 1. Calculus, left proximal ureter. 2. History of left hydronephrosis. OPERATIVE PROCEDURE: Shock wave lithotripsy of calculus, left ureter. INDICATIONS: Kalpesh Millard is a 42-year-old gentleman who had undergone urgent left stent insertion for an obstructing calculus in the left proximal ureter. He is now being brought in for lithotripsy. COMPLICATIONS: None. POSTOPERATIVE CONDITION: Stable. DESCRIPTION OF PROCEDURE: After induction of intravenous sedation, the patient was placed on the lithotripsy table in supine position. The calculus and the proximal left ureter was localized using fluoroscopy and shock wave lithotripsy was commenced under fluoroscopic guidance. Periodic imaging revealed good localization and fragmentation and a total of 3000 shocks were delivered. The patient tolerated the procedure satisfactorily and was transferred back to the recovery area in stable condition. [id number]/[facility] #: [id number] MTDD
[2017-05-23] MEDS ORDERED: Scopolamine PATCH Remove* 1 NOTE MISC PATCH OFF ONE (06:03)
== END 2017-05-20 14:45 | disposition home or self-care (01) ==
LOC: OR 09:55
PROVIDERS: ATTEND Urology
DX: N20.1 Calculus of ureter (principal); Z87.448 Personal history of other diseases of urinary system; Z96.0 Presence of urogenital implants; Z88.1 Allergy status to other antibiotic agents; Z84.1 Family history of disorders of kidney and ureter
CPT/HCPCS: 74000; J0696; J1100; J2250; J2405; J2704; J3010